=== PATIENT | female | born 1965 | race Caucasian/White ===

== ENCOUNTER 2018-01-06 01:02 | Outpatient (CLI) | payer MEDICAID, SELFPAY ==
--- NOTE | 2018-01-06 07:30 | MERGE_ITS ---
*[facility]* *[facility]* [address] [place] [address] Date of study: 01/06/2018 Transthoracic Echocardiography M-mode, complete 2D, complete spectral Doppler, and color Doppler *STUDY CONCLUSIONS* Summary: 1. Left ventricle: The cavity size was normal. Wall thickness was normal. Systolic function was normal. The estimated ejection fraction was 60-65%. Wall motion was normal; there were no regional wall motion abnormalities. 2. Mitral valve: There was mild regurgitation. 3. Right ventricle: The cavity size was normal. Wall thickness was normal. Systolic function was normal. 4. Pulmonary arteries: Pulmonary systolic pressure was at the upper limits of normal. PA peak pressure: 31mm Hg (S). *PATIENT PRESENTATION* Height: 160cm ((63in) ) S/D Pressure: 116 / 72 Weight: 59kg ((129.7lb) ) BSA: 1.63m^2 Test start time: 07:45 AM. Test stop time: 08:30 AM. 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 This study was interpreted by [facility]. Pertinent images and digital data are archived for permanent storage and are available for subsequent review. No prior study was available for comparison. Study status: Routine. Transthoracic echocardiography. M-mode, complete 2D, complete spectral Doppler, and color Doppler. A Transthoracic Echocardiogram was performed. Scanning was performed from the parasternal, apical, subcostal, and suprasternal notch acoustic windows. Images were obtained using an [id number] cardiac ultrasound machine. Image quality was adequate. Study completion: The patient tolerated the procedure well. History: PMH: Cardiac murmur. *CARDIAC ANATOMY* Left ventricle: The cavity size was normal. Wall thickness was normal. Systolic function was normal. The estimated ejection fraction was 60-65%. Wall motion was normal; there were no regional wall motion abnormalities. Aortic valve: Trileaflet; normal thickness leaflets. Mobility was not restricted. Doppler: Transvalvular velocity was within the normal range. There was no stenosis. There was no significant regurgitation. VTI ratio of LVOT to aortic valve: 0.83. Valve area (VTI): 2.4cm^2. Indexed valve area (VTI): 1.4cm^2/m^2. Peak velocity ratio of LVOT to aortic valve: 0.72. Valve area (Vmax): 2cm^2. Indexed valve area (Vmax): 1.3cm^2/m^2. Mean velocity ratio of LVOT to aortic valve: 0.79. Valve area (Vmean): 2.2cm^2. Indexed valve area (Vmean): 1.4cm^2/m^2. Mean gradient (S): 3.4mm Hg. Peak gradient (S): 6.8mm Hg. Aorta: Aortic root: The aortic root was normal in size. Ascending aorta: The ascending aorta was normal in size. Mitral valve: Mildly thickened leaflets. Mobility was not restricted. Doppler: Transvalvular velocity was within the normal range. There was no evidence for stenosis. There was mild regurgitation. Valve area by pressure half-time: 4cm^2. Indexed valve area by pressure half-time: 2.4cm^2/m^2. Peak gradient (D): 2.2mm Hg. Left atrium: The atrium was normal in size. Right ventricle: The cavity size was normal. Wall thickness was normal. Systolic function was normal. Pulmonic valve: Poorly visualized. Doppler: Transvalvular velocity was within the normal range. There was no evidence for stenosis. There was trivial regurgitation. Peak gradient (S): 3.5mm Hg. Tricuspid valve: Structurally normal valve. Doppler: Transvalvular velocity was within the normal range. There was no evidence for stenosis. There was trivial regurgitation. Pulmonary artery: Poorly visualized. Pulmonary systolic pressure was at the upper limits of normal. Right atrium: The atrium was normal in size. Pericardium: There was no pericardial effusion. Systemic veins: Inferior vena cava: Well visualized. The vessel was patent and normal in size. The respirophasic diameter changes were in the normal range (greater than or equal to 50%), consistent with normal central venous pressure. Baseline ECG: Sinus bradycardia. Measurements Left ventricle Value Reference LV ID, ED, PLAX 4.1 cm 3.5 - 6.0 LV ID, ES, PLAX 2.5 cm 2.1 - 4.0 LV PW thickness, ED, PLAX 0.7 cm LV end-diastolic volume, 1-p A2C 58 ml LV ejection fraction, 1-p A2C 61 % LV end-diastolic volume, 1-p A4C 64 ml LV ejection fraction, 1-p A4C 64 % LV e', lateral 0.118 m/sec LV E/e', lateral 6 LV e', medial 0.075 m/sec LV E/e', medial 10 LV e', average 0.096 m/sec LV E/e', average 8 Ventricular septum Value Reference IVS thickness, ED, PLAX 0.7 cm LVOT Value Reference LVOT ID, A-P 1.9 cm LVOT area 2.8 cm^2 LVOT peak velocity, S 0.94 m/sec LVOT mean velocity, S 0.7 m/sec LVOT VTI, S 22.6 cm LVOT peak gradient, S 3.5 mm Hg LVOT mean gradient, S 2.1 mm Hg Stroke volume (SV), LVOT DP 64 ml Stroke index (SV/bsa), LVOT DP 39 ml/m^2 Aortic valve Value Reference Aortic valve peak velocity, S 1.3 m/sec Aortic valve mean velocity, S 0.87 m/sec Aortic valve VTI, S 27.2 cm Aortic mean gradient, S 3.4 mm Hg Aortic peak gradient, S 6.8 mm Hg VTI ratio, LVOT/AV 0.83 Aortic valve area, VTI 2.4 cm^2 Velocity ratio, peak, LVOT/AV 0.72 Aortic valve area, peak velocity 2 cm^2 Velocity ratio, mean, LVOT/AV 0.79 Aortic valve area, mean velocity 2.2 cm^2 Aortic valve area/bsa, mean velocity 1.4 cm^2/m^2 Aorta Value Reference Aortic root ID, ED 2.7 cm Ascending aorta ID, A-P, S 2.8 cm RVOT Value Reference RVOT VTI, S 16.8 cm Left atrium Value Reference LA ID, A-P, ES 2.9 cm LA ID/bsa, A-P 1.8 cm/m^2 <=2.2 LA area, ES, A4C 16.6 cm^2 8.8 - 23.4 LA area, ES, A2C 16 cm^2 LA volume/bsa, ES, 1-p A4C 29 ml/m^2 LA volume, ES, 2-p 41 ml LA volume/bsa, ES, 2-p 25 ml/m^2 LA/aortic root ratio 1.08 Mitral valve Value Reference Mitral E-wave peak velocity 0.73 m/sec Mitral A-wave peak velocity 0.49 m/sec Mitral deceleration time 191 ms 150 - 230 Mitral pressure half-time 55 ms Mitral peak gradient, D 2.2 mm Hg Mitral E/A ratio, peak 1.5 Mitral valve area, PHT, DP 4 cm^2 Pulmonary veins Value Reference Pulmonary vein peak velocity, S 0.55 m/sec Pulmonary vein peak velocity, D 0.45 m/sec Pulmonary vein velocity ratio, peak, 1.22 S/D Pulmonary vein A-wave reversal peak 0.33 m/sec velocity Pulmonary vein A-wave reversal 153 ms duration Pulmonary arteries Value Reference PA pressure, S, DP (H) 31 mm Hg <=30 Tricuspid valve Value Reference Tricuspid regurg peak velocity 2.5 m/sec Tricuspid peak RV-RA gradient 24.1 mm Hg Right atrium Value Reference RA area, ES, A4C 11.1 cm^2 8.3 - 19.5 Systemic veins Value Reference Estimated CVP 10 mm Hg Right ventricle Value Reference RV pressure, S, DP (H) 34 mm Hg <=30 Pulmonic valve Value Reference Pulmonic peak gradient, S 3.5 mm Hg Legend: (L) and (H) alexus values outside specified reference range. I have personally reviewed the images and have reviewed and edited the reported findings. Electronically signed by Chandrika Ralph 01/06/2018 18:14
== END 2018-01-06 01:22 ==
PROVIDERS: PCP Nurse Practitioner Family; Visit Provider Naturopath
DX: R01.1 Cardiac murmur, unspecified (principal); I05.0 Rheumatic mitral stenosis
CPT/HCPCS: 93306

== ENCOUNTER 2018-01-11 00:14 | Outpatient (CLI) | payer MEDICAID, SELFPAY ==
--- NOTE | 2018-01-11 07:02 | DI.US_ITS ---
SYMPTOM/DIAGNOSIS: HYPERLIPIDEMIA E78.5 CAROTID ULTRASOUND: Minimal amount of plaque is seen in the left common carotid bulb. The velocity measurements are obtained bilaterally and are within the normal range. There is no visible stenosis. The vertebral arteries show antegrade flow. IMPRESSION: Minimal calcific plaque in left common carotid bulb. No significant internal carotid artery stenosis.
== END 2018-01-11 00:34 ==
PROVIDERS: PCP Nurse Practitioner Family; Visit Provider Naturopath
DX: I77.89 Other specified disorders of arteries and arterioles (principal); R78.5 Finding of other psychotropic drug in blood
CPT/HCPCS: 93880

== ENCOUNTER 2018-11-16 00:54 | Outpatient (CLI) | payer MEDICAID, SELFPAY ==
--- NOTE | 2018-11-16 08:40 | DI.MAMMO_ITS ---
SYMPTOM/DIAGNOSIS: SCREENING, Z12.39 MAMMOGRAMS: Mammograms were interpreted according to the usual protocol including computer analysis with CAD system, tomosynthesis and C view imaging. Comparison with prior examinations. Breast density B. No suspicious masses or microcalcifications are seen. There is no definite evidence of malignancy. IMPRESSION: Negative mammogram. Routine screening is recommended. Category I. MQSA ASSESSMENT OF FINDINGS: Negative. Category 1. Patient will receive a letter notifying them of these results. BI-RADS category B. There are scattered areas of fibroglandular density.
== END 2018-11-16 01:14 ==
PROVIDERS: PCP Nurse Practitioner Family; Visit Provider Nurse Practitioner Family
DX: Z12.31 Encounter for screening mammogram for malignant neoplasm of breast (principal)
CPT/HCPCS: 77063; 77067